=== PATIENT | female | born 1960 | race Caucasian/White ===

== ENCOUNTER 2021-09-15 18:39 | Observation (INO) | payer BC ==
[~2021-09-15] VITALS: Ht 157.5 cm; Wt 89.0 kg
--- NOTE | 2021-09-15 18:59 | ED Abdominal Pain ---
General Chief Complaint: Abdominal/GI Problems Stated Complaint: ABD PAIN History of Present Illness Date Seen by Provider: Sep 15, 2021 Time Seen by Provider: 18:45 Initial Comments 61-year-old female with PMH of HTN/DM2/breast cancer/COPD, is here with complaints of upper abdominal pain for the past 1 week which has been intermittent in nature. Patient has had associated nausea, and exacerbation of pain with food and movement. Patient does not have any history of gastritis or peptic ulcers. Denies fever, respiratory symptoms, loss of taste or smell, chest pain, diarrhea, constipation, vomiting. No known sick contacts Allergies and Home Medications Allergies Coded Allergies: Penicillins (Verified Allergy, Unknown, 09/15/21) codeine (Verified Allergy, Unknown, 09/15/21) Patient Home Medication List Home Medication List Reviewed: Yes Review of Systems Review of Systems Constitutional: no symptoms reported EENTM: No Symptoms Reported Respiratory: No Symptoms Reported Cardiovascular: No Symptoms Reported Gastrointestinal: Abdominal Pain, Nausea Genitourinary: No Symptoms Reported Musculoskeletal: no symptoms reported Skin: no symptoms reported Psychiatric/Neurological: No Symptoms Reported Endocrine: No Symptoms Reported Hematologic/Lymphatic: No Symptoms Reported Physical Exam Vital Signs Vital Signs - First Documented 09/15/21 18:44 Temp 37.2 Pulse 110 Resp 18 B/P (MAP) 128/95 (106) Pulse Ox 96 O2 Delivery Room Air Capillary Refill : Height/Weight/BMI Height: '" Weight: lbs. oz. kg; BMI Method: General Appearance: WD/WN, mild distress HEENT: PERRL/EOMI Neck: full range of motion Respiratory: chest non-tender, lungs clear, normal breath sounds, no respiratory distress Cardiovascular: normal peripheral pulses, regular rate, rhythm Gastrointestinal: normal bowel sounds, non tender (tenderness in RUQ/ LUQ and epigastric area), soft Extremities: normal range of motion Back: normal inspection, no CVA tenderness Neurologic/Psychiatric: alert, normal mood/affect, oriented x 3 Skin: normal color Focused Exam Lactate Level 09/15/21 18:57: Lactic Acid Level 1.93 Lactic Acid Level Laboratory Tests Test 09/15/21 18:57 Lactic Acid Level 1.93 MMOL/L (0.50-2.00) Progress/Results/Core Measures Results/Orders Lab Results Laboratory Tests Test 09/15/21 18:57 09/15/21 19:37 Range/Units White Blood Count 8.9 4.3-11.0 10^3/uL Red Blood Count 4.07 3.80-5.11 10^6/uL Hemoglobin 12.5 11.5-16.0 g/dL Hematocrit 37 35-52 % Mean Corpuscular Volume 90 80-99 fL Mean Corpuscular Hemoglobin 31 25-34 pg Mean Corpuscular Hemoglobin Concent 34 32-36 g/dL Red Cell Distribution Width 13.5 10.0-14.5 % Platelet Count 277 130-400 10^3/uL Mean Platelet Volume 11.0 9.0-12.2 fL Immature Granulocyte % (Auto) 0 % Neutrophils (%) (Auto) 68 42-75 % Lymphocytes (%) (Auto) 20 12-44 % Monocytes (%) (Auto) 9 0-12 % Eosinophils (%) (Auto) 2 0-10 % Basophils (%) (Auto) 0 0-10 % Neutrophils # (Auto) 6.1 1.8-7.8 10^3/uL Lymphocytes # (Auto) 1.8 1.0-4.0 10^3/uL Monocytes # (Auto) 0.8 0.0-1.0 10^3/uL Eosinophils # (Auto) 0.1 0.0-0.3 10^3/uL Basophils # (Auto) 0.0 0.0-0.1 10^3/uL Immature Granulocyte # (Auto) 0.0 0.0-0.1 10^3/uL Sodium Level 134 L 135-145 MMOL/L Potassium Level 4.6 3.6-5.0 MMOL/L Chloride Level 98 98-107 MMOL/L Carbon Dioxide Level 24 21-32 MMOL/L Anion Gap 12 5-14 MMOL/L Blood Urea Nitrogen 13 7-18 MG/DL Creatinine 0.86 0.60-1.30 MG/DL Estimat Glomerular Filtration Rate 77 BUN/Creatinine Ratio 15 Glucose Level 280 H 70-105 MG/DL Lactic Acid Level 1.93 0.50-2.00 MMOL/L Calcium Level 9.5 8.5-10.1 MG/DL Corrected Calcium 9.6 8.5-10.1 MG/DL Magnesium Level 1.3 L 1.6-2.4 MG/DL Total Bilirubin 0.4 0.1-1.0 MG/DL Aspartate Amino Transf (AST/SGOT) 21 5-34 U/L Alanine Aminotransferase (ALT/SGPT) 18 0-55 U/L Alkaline Phosphatase 87 40-136 U/L Troponin I < 0.30 <0.30 NG/ML Total Protein 8.0 6.4-8.2 GM/DL Albumin 3.9 3.2-4.5 GM/DL Lipase 486 H 8-78 U/L Serum Alcohol < 10 <10 MG/DL Urine Color YELLOW Urine Clarity CLEAR Urine pH 6.0 5-9 Urine Specific [place] 1.020 1.016-1.022 Urine Protein NEGATIVE NEGATIVE Urine Glucose (UA) 3+ H NEGATIVE Urine Ketones NEGATIVE NEGATIVE Urine Nitrite NEGATIVE NEGATIVE Urine Bilirubin NEGATIVE NEGATIVE Urine Urobilinogen 0.2 < = 1.0 MG/DL Urine Leukocyte Esterase NEGATIVE NEGATIVE Urine RBC (Auto) NEGATIVE NEGATIVE Urine RBC NONE /HPF Urine WBC 2-5 /HPF Urine Squamous Epithelial Cells 2-5 /HPF Urine Renal Epithelial Cells 0-2 /HPF Urine Crystals NONE /LPF Urine Bacteria FEW H /HPF Urine Casts NONE /LPF Urine Mucus MODERATE H /LPF Urine Culture Indicated NO Urine Opiates Screen NEGATIVE NEGATIVE Urine Oxycodone Screen NEGATIVE NEGATIVE Urine Methadone Screen NEGATIVE NEGATIVE Urine Propoxyphene Screen NEGATIVE NEGATIVE Urine Barbiturates Screen NEGATIVE NEGATIVE Ur Tricyclic Antidepressants Screen NEGATIVE NEGATIVE Urine Phencyclidine Screen NEGATIVE NEGATIVE Urine Amphetamines Screen NEGATIVE NEGATIVE Urine Methamphetamines Screen NEGATIVE NEGATIVE Urine Benzodiazepines Screen NEGATIVE NEGATIVE Urine Cocaine Screen NEGATIVE NEGATIVE Urine Cannabinoids Screen NEGATIVE NEGATIVE My Orders Orders - KAYLA RICKETTS MD Ct Abdomen/Pelvis W (09/15/21 19:05) Alcohol (09/15/21 19:05) Cbc With Automated Diff (09/15/21 19:05) Comprehensive Metabolic Panel (09/15/21 19:05) Drug Screen Stat (Urine) (09/15/21 19:05) Lactic Acid Analyzer (09/15/21 19:05) Lipase (09/15/21 19:05) Magnesium (09/15/21 19:05) Ua Culture If Indicated (09/15/21 19:05) Troponin I Fs (09/15/21 19:05) Iohexol Injection (Omnipaque 350 Mg/Ml 1 (09/15/21 19:15) Received Contrast (Hold Metformin- Contr (09/15/21 19:15) Ns (Ivpb) (Sodium Chloride 0.9% Ivpb Bag (09/15/21 19:15) Implanted Port: Access (09/15/21 19:14) Ketorolac Injection (Toradol Injection) (09/15/21 20:00) Ed Iv/Invasive Line Start (09/15/21 19:57) Ns Iv 1000 Ml (Sodium Chloride 0.9%) (09/15/21 20:00) Medications Given in ED Current Medications Medications Dose Ordered Sig/Omaira Route Start Time Stop Time Status Last Admin Dose Admin Iohexol 100 ml ONCE ONCE IV 09/15/21 19:15 09/15/21 19:16 DC 09/15/21 20:09 100 ML Ketorolac Tromethamine 15 mg ONCE ONCE IVP 09/15/21 20:00 09/15/21 20:01 DC 09/15/21 20:03 15 MG Sodium Chloride 100 ml ONCE ONCE IV 09/15/21 19:15 09/15/21 19:16 DC 09/15/21 20:09 100 ML Vital Signs/I&O 09/15/21 09/15/21 18:44 19:45 Temp 37.2 Pulse 110 91 Resp 18 20 B/P (MAP) 128/95 (106) 113/79 Pulse Ox 96 100 O2 Delivery Room Air Room Air Progress Progress Note : Progress Note 1. ACUTE PANCREATITIS:: - CT ABD: see report, confirms acute pancreatitis - Labs unremarkable except for lipase elevation of 486 - UA unremarkable - Toradol 15mg iv, which didn't help the pain and then later Morphine 2mg iv given for pain - NPO - Will admit to observation for pain control and hydration 2. HYPOMAGNESEMIA: - s. Mg is 1.3 - iv Mg repletion, 1gm, given in ER Diagnostic Imaging Diagonstic Imaging: CT Plain Films/CT/US/NM/MRI: abdomen Comments [facility]. [place], [place] NAME: MAGY ALANIS [facility] REC#: [id number] PT STATUS: REG ER : 1960 PHYSICIAN: KAYLA RICKETTS MD ADMIT DATE: 09/15/21/ER FS Draft Date of Exam:09/15/21 CT ABDOMEN/PELVIS W PROCEDURE: CT abdomen and pelvis with contrast. TECHNIQUE: Multiple contiguous axial images were obtained through the abdomen and pelvis after administration of intravenous contrast. Auto Exposure Controls were utilized during the CT exam to meet ALARA standards for radiation dose reduction. All CT scans use one or more of the following dose optimizing techniques: automated exposure control, MA and/or KvP adjustment based on patient size and exam type or iterative reconstruction. INDICATION: Upper abdominal pain. COMPARISON: None. FINDINGS: CT ABDOMEN: There is subtle stranding of the peripancreatic fat surrounding the pancreatic head and uncinate process. No definite pancreatic mass is seen. Findings are suspicious for acute pancreatitis. There is no loculated fluid collection to suggest pseudocyst or abscess. There is no evidence of pancreatic necrosis. Benign-appearing left renal cyst is noted. Otherwise, kidneys, adrenal glands, spleen and liver have a normal CT appearance. Small bowel loops are nondistended. Multiple appendicoliths are noted, but there is no CT evidence of acute appendicitis. There is colonic diverticulosis and no CT evidence of acute diverticulitis. There is no pneumatosis, pneumoperitoneum or portal venous gas. No free fluid is seen. There is moderate scattered calcified aortic and arterial atherosclerosis. Osseous structures show no acute abnormality. CT PELVIS: Urinary bladder is unopacified. No calculus is seen within the urinary bladder. There is no loculated fluid collection, free fluid or free air within the pelvis. No abnormal adenopathy is identified. Osseous structures show no acute abnormality. IMPRESSION: 1. Findings most suggestive of acute pancreatitis. Short interval three-month follow-up is recommended, as pancreatic neoplasm may present in a similar manner. 2. No evidence of pancreatic necrosis, pseudocyst or abscess. Dictated on workstation # [id number] Dict: 09/15/212029 Trans: 09/15/212048 [facility] [id number] Interpreted by: MADAI BOSS MD Electronically signed by: Departure Communication (Admissions) Time/Spoke to Admitting Phy: 21:[address] Chirinos and will admit to Observation Impression Primary Impression: Acute pancreatitis Qualified Codes: K85.90 - Acute pancreatitis without necrosis or infection, unspecified Additional Impression: Hypomagnesemia Disposition: 30 STILL A PATIENT Condition: Stable Admissions Decision to Admit Reason: Admit from ER (General) Decision to Admit/Date: Sep 15, 2021 Time/Decision to Admit Time: 21:00 Transfer Method of Transfer: EMS Departure-Patient Inst. Referrals: EMIL BYNUM APRN (PCP/Family) Primary Care Physician KAYLA RICKETTS MD Sep 15, 2021 18:59
[2021-09-15] MEDS ORDERED: NS 100 ML (IVPB) BAG IV ONE (19:15)
[2021-09-15] MEDS ORDERED: IOHEXOL 350 MG/ML 100 ML (OMNIPAQUE 350) VIAL IV ONE (19:15)
[2021-09-15] MEDS ORDERED: HOLD METFORMIN - RECEIVED CONTRAST 20 ML VIAL IV SCH (19:15)
[2021-09-15 19:19] LABS: BASOPHILS % (AUTO) 0 % (0-10); EOSINOPHILS # (AUTO) 0.1 10^3/uL (0.0-0.3); EOSINOPHILS % (AUTO) 2 % (0-10); HEMATOCRIT 37 % (35-52); HEMOGLOBIN 12.5 g/dL (11.5-16.0); LYMPHOCYTES # (AUTO) 1.8 10^3/uL (1.0-4.0); LYMPHOCYTES % (AUTO) 20 % (12-44); MEAN CORPUSCULAR HEMOGLOBIN 31 pg (25-34); MEAN CORPUSCULAR HGB CONC 34 g/dL (32-36); MEAN CORPUSCULAR VOLUME 90 fL (80-99); MONOCYTES # (AUTO) 0.8 10^3/uL (0.0-1.0); MONOCYTES % (AUTO) 9 % (0-12); NEUTROPHILS # (AUTO) 6.1 10^3/uL (1.8-7.8); NEUTROPHILS % (AUTO) 68 % (42-75); PLATELET COUNT 277 10^3/uL (130-400); WHITE BLOOD COUNT 8.9 10^3/uL (4.3-11.0)
[2021-09-15 19:45] LABS: ALANINE AMINOTRANSFERASE 18 U/L (0-55); ALKALINE PHOSPHATASE 87 U/L (40-136); BILIRUBIN,TOTAL 0.4 MG/DL (0.1-1.0); BUN/CREATININE RATIO 15; CALCIUM 9.5 MG/DL (8.5-10.1); CARBON DIOXIDE 24 MMOL/L (21-32); CHLORIDE 98 MMOL/L (98-107); CREATININE SERUM 0.86 MG/DL (0.60-1.30); GFR ESTIMATED 77; GLUCOSE 280 MG/DL (70-105); MAGNESIUM 1.3 MG/DL (1.6-2.4); POTASSIUM 4.6 MMOL/L (3.6-5.0); SODIUM 134 MMOL/L (135-145)
[2021-09-15 19:46] LABS: ALBUMIN 3.9 GM/DL (3.2-4.5); LIPASE 486 U/L (8-78)
[2021-09-15 19:55] LABS: BILIRUBIN,URINE NEGATIVE (NEGATIVE); CLARITY,URINE CLEAR; COLOR,URINE YELLOW; GLUCOSE, URINE (UA) 3+ (NEGATIVE); KETONES,URINE NEGATIVE (NEGATIVE); LEUKOCYTE ESTERASE ,URINE NEGATIVE (NEGATIVE); NITRITE,URINE NEGATIVE (NEGATIVE); PROTEIN,URINE NEGATIVE (NEGATIVE)
[2021-09-15] MEDS ORDERED: KETOROLAC 30 MG/ML VIAL IVP ONE (20:00)
[2021-09-15] MEDS ORDERED: NS IV 1000 ML 1,000 ML IV SCH (20:00)
[2021-09-15 20:06] LABS: BACTERIA,URINE FEW /HPF; RENAL EPITHELIAL CELLS,URINE 0-2 /HPF
[2021-09-15 20:07] LABS: AMPHETAMINE SCREEN, URINE NEGATIVE (NEGATIVE); BARBITURATE SCREEN URINE NEGATIVE (NEGATIVE); BENZODIAZEPINES SCREEN URINE NEGATIVE (NEGATIVE); CANNABINOID SCREEN, URINE NEGATIVE (NEGATIVE); COCAINE SCREEN URINE NEGATIVE (NEGATIVE); METHADONE STAT NEGATIVE (NEGATIVE); OPIATE SCREEN URINE NEGATIVE (NEGATIVE); OXYCODONE STAT NEGATIVE (NEGATIVE); PROPOXYPHENE STAT NEGATIVE (NEGATIVE); TRICYCLIC ANTIDEPRESSANTS SCRE NEGATIVE (NEGATIVE)
--- NOTE | 2021-09-15 20:50 | Diagnostic Imaging Report ---
PROCEDURE: CT abdomen and pelvis with contrast. TECHNIQUE: Multiple contiguous axial images were obtained through the abdomen and pelvis after administration of intravenous contrast. Auto Exposure Controls were utilized during the CT exam to meet ALARA standards for radiation dose reduction. All CT scans use one or more of the following dose optimizing techniques: automated exposure control, MA and/or KvP adjustment based on patient size and exam type or iterative reconstruction. INDICATION: Upper abdominal pain. COMPARISON: None. FINDINGS: CT ABDOMEN: There is subtle stranding of the peripancreatic fat surrounding the pancreatic head and uncinate process. No definite pancreatic mass is seen. Findings are suspicious for acute pancreatitis. There is no loculated fluid collection to suggest pseudocyst or abscess. There is no evidence of pancreatic necrosis. Benign-appearing left renal cyst is noted. Otherwise, kidneys, adrenal glands, spleen and liver have a normal CT appearance. Small bowel loops are nondistended. Multiple appendicoliths are noted, but there is no CT evidence of acute appendicitis. There is colonic diverticulosis and no CT evidence of acute diverticulitis. There is no pneumatosis, pneumoperitoneum or portal venous gas. No free fluid is seen. There is moderate scattered calcified aortic and arterial atherosclerosis. Osseous structures show no acute abnormality. CT PELVIS: Urinary bladder is unopacified. No calculus is seen within the urinary bladder. There is no loculated fluid collection, free fluid or free air within the pelvis. No abnormal adenopathy is identified. Osseous structures show no acute abnormality. IMPRESSION: 1. Findings most suggestive of acute pancreatitis. Short interval three-month follow-up is recommended, as pancreatic neoplasm may present in a similar manner. 2. No evidence of pancreatic necrosis, pseudocyst or abscess. Dictated by: Dictated on workstation # [id number]
[2021-09-15] MEDS ORDERED: ENOXAPARIN 40 MG/0.4 ML (LOVENOX) SYR SC SCH (21:00)
[2021-09-15] MEDS ORDERED: morphine INJ 10 MG/ML 1ML (SYR OR VIAL) IVP STA (21:05)
[2021-09-15] MEDS ORDERED: MAGNESIUM 1 GM/100 ML IVPB 100 ML IV ONE ×2 (21:15→21:18)
[2021-09-15] MEDS ORDERED: morphine INJ 10 MG/ML 1ML (SYR OR VIAL) ONE (21:17)
[2021-09-15 23:06] VITALS: BP 104/56
[2021-09-15] MEDS ORDERED: NS IV 1000 ML 1,000 ML ONE (23:29)
[2021-09-15] MEDS ORDERED: polyethylene glycoL POWDER 17 GM (MIRALAX) PACK PO PRN (23:30)
[2021-09-15] MEDS ORDERED: diphenhydrAMINE 50 MG/ML INJ (BENADRYL) IVP PRN (23:30)
[2021-09-15] MEDS ORDERED: ONDANSETRON 4 MG (ZOFRAN) ORAL DISSOLVE TAB PO PRN (23:30)
[2021-09-15] MEDS ORDERED: KETOROLAC 30 MG/ML VIAL IVP PRN (23:30)
[2021-09-15] MEDS ORDERED: diphenhydrAMINE 25 MG TAB (BENADRYL) PO PRN (23:30)
[2021-09-15] MEDS ORDERED: MELATONIN 3 MG TABLET PO PRN (23:30)
[2021-09-15] MEDS ORDERED: HYDROmorphone 2 MG/ML VIAL (DILAUDID) IV PRN (23:30)
[2021-09-15] MEDS ORDERED: BISACODYL 10 MG SUPP (DULCOLAX) PR PRN (23:30)
[2021-09-15] MEDS ORDERED: LORazepam 0.5 MG (ATIVAN) TABLET PO PRN (23:30)
[2021-09-15] MEDS ORDERED: ACETAMINOPHEN 325 MG TABLET PO PRN (23:30)
[2021-09-15] MEDS ORDERED: ANTACID SUSP 30 ML UDC (MYLANTA) PO PRN (23:30)
[2021-09-15] MEDS ORDERED: ONDANSETRON 4 MG/2 ML (SDV) Z0FRAN IV PRN (23:30)
[2021-09-15] MEDS: MAGNESIUM 1 GM/100 ML IVPB 100 ML IV SCH (23:57)
[2021-09-15] MEDS: NS IV 1000 ML 1,000 ML IV SCH (23:57)
[2021-09-16] MEDS: MAGNESIUM 1 GM/100 ML IVPB 100 ML IV SCH ×2 (01:01→02:06)
[2021-09-16 04:00] VITALS: BP 102/50
[2021-09-16 06:05] LABS: BASOPHILS % (AUTO) 1 % (0-10); EOSINOPHILS # (AUTO) 0.2 10^3/uL (0.0-0.3); EOSINOPHILS % (AUTO) 3 % (0-10); HEMATOCRIT 32 % (35-52); HEMOGLOBIN 10.6 g/dL (11.5-16.0); LYMPHOCYTES # (AUTO) 2.2 10^3/uL (1.0-4.0); LYMPHOCYTES % (AUTO) 39 % (12-44); MEAN CORPUSCULAR HEMOGLOBIN 31 pg (25-34); MEAN CORPUSCULAR HGB CONC 34 g/dL (32-36); MEAN CORPUSCULAR VOLUME 92 fL (80-99); MEAN PLATELET VOLUME 10.8 fL (9.0-12.2); MONOCYTES # (AUTO) 0.5 10^3/uL (0.0-1.0); MONOCYTES % (AUTO) 9 % (0-12); NEUTROPHILS # (AUTO) 2.7 10^3/uL (1.8-7.8); NEUTROPHILS % (AUTO) 48 % (42-75); PLATELET COUNT 230 10^3/uL (130-400); WHITE BLOOD COUNT 5.6 10^3/uL (4.3-11.0)
[2021-09-16 06:24] LABS: ALBUMIN 3.3 GM/DL (3.2-4.5); BILIRUBIN,TOTAL 0.6 MG/DL (0.1-1.0); CALCIUM 8.6 MG/DL (8.5-10.1); CREATININE SERUM 1.02 MG/DL (0.60-1.30); POTASSIUM 4.1 MMOL/L (3.6-5.0); TOTAL PROTEIN 6.6 GM/DL (6.4-8.2)
[2021-09-16] MEDS: inSUlin ASPART (NovoLOG) 1 UNIT/0.01 ML (CHARGE PER UNIT) SC SCH ×3 (07:15→16:22)
--- NOTE | 2021-09-16 07:20 | Consultation - Surgery ---
NIKHIL GARCIA 09/16/21 0720: History of Present Illness History of Present Illness Patient Consulted On(bashir/time) 09/16/21 07:14 Date Seen by Provider: Sep 16, 2021 Time Seen by Provider: 07:14 History of Present Illness consulted by Dr. Chirinos 61 yo female c/o midline squeezing abdominal pain with no radiation that started 8 days ago. Pt notes that the pain was worse at onset and decreased slightly in the first two days but persisted ever since. Pt notes some relief of pain after oxycodone was given in hospital. Pt is sitting up in bed comfortably. Family is at bedside. Pt had an abdominal/pelvis CT yesterday that was most suggestive of acute pancreatitis. Discussed obtaining an ultrasound of the gallbladder and pt understands. Pt denies n/v, shortness of breath, and CP. Allergies and Home Medications Allergies Coded Allergies: Penicillins (Verified Allergy, Unknown, 09/15/21) codeine (Verified Allergy, Unknown, 09/15/21) Patient Home Medication List Home Medication List Reviewed: Yes Past Dxhybko-Divfzx-Bwfwaj Hx Patient Social History Smoking Status: Former Smoker Alcohol Use?: No Have you traveled recently?: No Surgeries History of Surgeries: Yes Surgeries: Breast (b/l reconstruction surgery) Cardiovascular Cardiac Disorders: Heart Attack Cancer Cancer: Breast (2000), Melanoma (2017) Psychosocial History of Psychiatric Problem: No Review of Systems-General Constitutional: No chills, No diaphoresis EENTM: No hearing loss, No ear pain Respiratory: No cough, No dyspnea on exertion Cardiovascular: No chest pain, No edema Gastrointestinal: No hematemesis, No heartburn Genitourinary: No discharge, No frequency Musculoskeletal: No gout, No joint pain Skin: No change in color, No change in hair/nails Psychiatric/Neurological: Denies Anxiety, Denies Depressed Physical Exam-General Problems Physical Exam Vital Signs Vital Signs - First Documented 09/15/21 18:44 Temp 37.2 Pulse 110 Resp 18 B/P (MAP) 128/95 (106) Pulse Ox 96 O2 Delivery Room Air Capillary Refill : Less Than 3 Seconds General Appearance: WD/WN, no apparent distress HEENT: PERRL/EOMI, normal ENT inspection Neck: non-tender, full range of motion Respiratory: no respiratory distress, no accessory muscle use Cardiovascular: regular rate, rhythm, no JVD Gastrointestinal: soft, tenderness (epigastric) Back: normal inspection, no CVA tenderness Extremities: non-tender, normal inspection Neurologic/Psychiatric: no motor/sensory deficits, alert, normal mood/affect, oriented x 3 Skin: normal color, warm/dry Lymphatic: no adenopathy Data Review Labs Laboratory Tests 09/15/21 18:57: White Blood Count 8.9, Red Blood Count 4.07, Hemoglobin 12.5, Hematocrit 37, Sweta n Corpuscular Volume 90, Mean Corpuscular Hemoglobin 31, Mean Corpuscular Hemoglobin Concent 34, Red Cell Distribution Width 13.5, Platelet Count 277, Mean Platelet Volume 11.0, Immature Granulocyte % (Auto) 0, Neutrophils (%) (Auto) 68, Lymphocytes (%) (Auto) 20, Monocytes (%) (Auto) 9, Eosinophils (%) (Auto) 2, Basophils (%) (Auto) 0, Neutrophils # (Auto) 6.1, Lymphocytes # (Auto) 1.8, Monocytes # (Auto) 0.8, Eosinophils # (Auto) 0.1, Basophils # (Auto) 0.0, Immature Granulocyte # (Auto) 0.0, Sodium Level 134L, Potassium Level 4.6, Chloride Level 98, Carbon Dioxide Level 24, Anion Gap 12, Blood Urea Nitrogen 1 3, Creatinine 0.86, Estimat Glomerular Filtration Rate 77, BUN/Creatinine Ratio 15, Glucose Level 280H, Lactic Acid Level 1.93, Calcium Level 9.5, Corrected Calcium 9.6, Magnesium Level 1.3L, Total Bilirubin 0.4, Aspartate Amino Transf (AST/SGOT) 21, Alanine Aminotransferase (ALT/SGPT) 18, Alkaline Phosphatase 87, Troponin I < 0.30, Total Protein 8.0, Albumin 3.9, Lipase 486H, Serum Alcohol < 10 09/15/21 19:37: Urine Color YELLOW, Urine Clarity CLEAR, Urine pH 6.0, Urine Specific [place] 1.020, Urine Protein NEGATIVE, Urine Glucose (UA) 3+H, Urine Ketones NEGATIVE, Urine Nitrite NEGATIVE, Urine Bilirubin NEGATIVE, Urine Urobilinogen 0.2, Urine Leukocyte Esterase NEGATIVE, Urine RBC (Auto) NEGATIVE, Urine RBC NONE, Urine WBC 2-5, Urine Squamous Epithelial Cells 2-5, Urine Renal Epithelial Cells 0-2, Urine Crystals NONE, Urine Bacteria FEWH, Urine Casts NONE, Urine Mucus MODER ATEH, Urine Culture Indicated NO, Urine Opiates Screen NEGATIVE, Urine Oxycodone Screen NEGATIVE, Urine Methadone Screen NEGATIVE, Urine Propoxyphene Screen NEGATIVE, Urine Barbiturates Screen NEGATIVE, Ur Tricyclic Antidepressants Screen NEGATIVE, Urine Phencyclidine Screen NEGATIVE, Urine Amphetamines Screen NEGATIVE, Urine Methamphetamines Screen NEGATIVE, Urine Benzodiazepines Screen NEGATIVE, Urine Cocaine Screen NEGATIVE, Urine Cannabinoids Screen NEGATIVE 09/16/21 04:40: White Blood Count 5.6, Red Blood Count 3.44L, Hemoglobin 10.6L, Hematocrit 32L, Mean Corpuscular Volume 92, Mean Corpuscular Hemoglobin 31, Mean Corpuscular Hemoglobin Concent 34, Red Cell Distribution Width 13.6, Platelet Count 230, Mean Platelet Volume 10.8, Immature Granulocyte % (Auto) 0, Neutrophils (%) (Auto) 48, Lymphocytes (%) (Auto) 39, Monocytes (%) (Auto) 9, Eosinophils (%) (Auto) 3, Basophils (%) (Auto) 1, Neutrophils # (Auto) 2.7, Lymphocytes # (Auto) 2.2, Monocytes # (Auto) 0.5, Eosinophils # (Auto) 0.2, Basophils # (Auto) 0.0, Immature Granulocyte # (Auto) 0.0, Sodium Level 132L, Potassium Level 4.1, Chloride Level 101, Carbon Dioxide Level 22, Anion Gap 9, Blood Urea Nitrogen 14, Creatinine 1.02, Estimat Glomerular Filtration Rate 63, BUN/Creatinine Ratio 14, Glucose Level 158H, Calcium Level 8.6, Corrected Calcium 9.2, Total Bilirubin 0.6, Aspartate Amino Transf (AST/SGOT) 14, Alanine Aminotransferase (ALT/SGPT) 18, Alkaline Phosphatase 65, Total Protein 6.6, Albumin 3.3, Lipase 223H Assessment/Plan Assessment/Plan Assessment/Plan Acute pancreatitis Anemia Abd pain Ultrasound of gallbladder IV fluids monitor labs NPO repeat CT scan in three months EDVIN WALTON DO 09/16/21 2030: History of Present Illness History of Present Illness History of Present Illness Consult requested by Dr. Chirinos for pancreatitis. Patient is 61-year-old female who is been having a squeezing abdominal pain without any radiation that started approximately 7 to 8 days ago. Patient states that the pain was really bad on onset and decreased slightly and then continue to persist in that area. Patient states that the pain medication she received did help relieve some of her symptoms. She is not had any previous abdominal pain like this. She does not drink any alcohol. Sitting up is more comfortable for her. She had a CT scan that was suggestive of acute pancreatitis and also could be early neoplasm and would need a repeat CT scan in 3 months for reevaluation. Allergies and Home Medications Allergies Coded Allergies: Penicillins (Verified Allergy, Unknown, 09/15/21) codeine (Verified Allergy, Unknown, 09/15/21) Patient Home Medication List Home Medication List Reviewed: Yes Past Matsqlr-Uswnfq-Rtgrqo Hx Surgeries History of Surgeries: Yes (port) Surgeries: Breast (b/l reconstruction surgery), Hysterectomy Cancer Cancer: Breast (1999), Melanoma (2016) Reviewed Nursing Assessment Reviewed/Agree w Nursing PMH: Yes Family Medical History Significant Family History: No Pertinent Family Hx Review of Systems-General Constitutional: No chills, No diaphoresis EENTM: No hearing loss, No ear pain Respiratory: No cough, No dyspnea on exertion Cardiovascular: No chest pain, No edema Gastrointestinal: abdominal pain; No hematemesis, No heartburn, No nausea, No vomiting Genitourinary: No discharge, No frequency Musculoskeletal: No gout, No joint pain Skin: No change in color, No change in hair/nails Psychiatric/Neurological: Denies Anxiety, Denies Depressed All Other Systems Reviewed Negative Unless Noted: Yes (Negative excepted noted.) Physical Exam-General Problems Physical Exam General Appearance: WD/WN, no apparent distress HEENT: PERRL/EOMI, normal ENT inspection Neck: non-tender, full range of motion Respiratory: chest non-tender, no respiratory distress, no accessory muscle use Cardiovascular: regular rate, rhythm, no JVD Gastrointestinal: soft, tenderness (epigastric) Rectal: deferred Back: normal inspection, no CVA tenderness Extremities: non-tender, normal inspection Neurologic/Psychiatric: no motor/sensory deficits, alert, normal mood/affect, oriented x 3 Skin: normal color, warm/dry Lymphatic: no adenopathy Assessment/Plan Assessment/Plan Assessment/Plan Acute pancreatitis Anemia Abd pain epigastric Ultrasound of gallbladder to evaluate for stones/sludge IV fluids monitor labs NPO for u/s will need repeat CT scan in three months discussed this with patient and daughter who understand need to make sure neoplastic process not present. Supervisory-Addendum Brief Verification & Attestation Participated in pt care: history, MDM, physical Personally performed: exam, history, MDM, supervision of care Care discussed with: Medical Student Procedures: n/a Results interpretation: Verified all documentation Verification and Attestation of Medical Student E/M Service A medical student performed and documented this service in my presence. I reviewed and verified all information documented by the medical student and made modifications to such information, when appropriate. I personally performed the physical exam and medical decision making. Edvin Walton, Sep 16, 2021,20:30 NIKHIL GARCIA Sep 16, 2021 07:20 EDVIN WALTON DO Sep 16, 2021 20:30
[2021-09-16 08:12] VITALS: BP 131/71
[2021-09-16] MEDS: NS IV 1000 ML 1,000 ML IV SCH ×2 (08:26→09:55)
--- NOTE | 2021-09-16 08:36 | Diagnostic Imaging Report ---
PROCEDURE: US Gallbladder. INDICATION: Abdominal pain, acute pancreatitis TECHNIQUE: Multiple grayscale sonographic images were obtained of the right upper quadrant of the abdomen. CORRELATION STUDY: None FINDINGS: LIVER: Enlarged at 21 cm. Probable diffuse hepatic steatosis. The main portal vein is patent and with normal direction of flow. GALLBLADDER: The gallbladder demonstrates no definitive shadowing gallstones, abnormal gallbladder wall thickening or pericholecystic fluid. COMMON BILE DUCT: Nondilated at 0.5 cm. AORTA/IVC: Not well visualized. PANCREAS: Largely obscured by overlying bowel gas. RIGHT KIDNEY: 9.2 x 4.3 x 4.6 cm. No hydronephrosis. OTHER: None. IMPRESSION: 1. Negative for gallstones or bile duct dilatation. Pancreas is not well visualized, largely obscured by overlying bowel gas. 2. Hepatomegaly with probable hepatic steatosis. Dictated by: Dictated on workstation # [id number]
[2021-09-16] MEDS ORDERED: DOCUSATE SODIUM 100 MG (COLACE) CAP PO SCH (09:00)
--- NOTE | 2021-09-16 09:13 | Physical Therapy Progress Note ---
Therapy Progress Note Patient is up independently without difficulty. No skilled PT indicated. MAGY GRAHAM PT Sep 16, 2021 09:13
--- NOTE | 2021-09-16 11:28 | Occ Therapy Progress Note ---
Therapy Progress Note OT orders received and chart reviewed. PT and pt both report that she is up independently in her room and pt has no concerns about ADLs upon d/c. No skilled OT services indicated at this time. D/c from OT. 1, visit ANA LUISA LEES OT Sep 16, 2021 11:28
--- NOTE | 2021-09-16 11:45 | History & Physical-Hospitalist ---
ANGELLA WATERMAN 09/16/21 1145: History of Present Illness HPI/Chief Complaint CC: Acute Pancreatitis HPI: 61-year-old female with PMH of HTN/DM2/breast cancer/COPD, presented to ER on 09/15/21 with complaints of upper abdominal pain for the past 1 week which has been intermittent in nature. Patient has had associated nausea, and exacerbation of pain with food and movement. Patient does not have any history of gastritis or peptic ulcers. CT confirmed acute panc. Pt denies any pain, N/V, fever, CP/SOB. GB US was completed this morning. Pt reports normal BM and feels "back to normal." Source: patient Exam Limitations: no limitations Date Seen 09/16/21 Time Seen by a Provider: 11:45 Attending Physician Mirela Bains Aprn PCP Admitting Physician: Jacquie Rivera DO Attending Physician: Jacquie Rivera DO Referring Physician Date of Admission Sep 15, 2021 at 23:05 Home Medications & Allergies Home Medications Reviewed patient Home Medication Reconciliation performed by pharmacy medication reconciliations survey technician and/or nursing. Patients Allergies have been reviewed. Allergies Allergies Coded Allergies Penicillins (Verified Allergy, Unknown, 09/15/21) codeine (Verified Allergy, Unknown, 09/15/21) Past [id number] Hx Patient Social History Marrital Status: Number of Children: 3 Number of living children: 3 Employed/Student: employed Tobacco Use?: No Smoking Status: Former Smoker Smokeless Tobacco Frequency: Never a User Use of E-Cig and/or Vaping dev: No Substance use?: No Alcohol Use?: No Pt feels they are or have been: No Current Status status: No status: No Advance Directives: No Communicates: Verbally Primary Language: Montenegrin Preferred Spoken Language: Montenegrin Is interpretation needed?: No Sensory deficits: Vision impairment Implanted or Applied Medical D: Central venous access Past Medical History Surgeries: Breast (b/l reconstruction surgery) Heart Attack Breast (2000), Melanoma (2017) Review of Systems Constitutional: No chills, No diaphoresis, No fever EENTM: No no symptoms reported Respiratory: No cough, No short of breath Cardiovascular: No chest pain, No edema Gastrointestinal: see HPI Genitourinary: No dysuria, No frequency, No hesitancy, No incontinence Musculoskeletal: No back pain, No muscle pain, No muscle stiffness, No muscle twitching, No muscle weakness Skin: No change in color; hx of skin cancer Psychiatric/Neurological: Denies Headache, Denies Numbness, Denies Paresthesia Physical Exam Physical Exam Vital Signs Vital Signs - First Documented 09/15/21 18:44 Temp 37.2 Pulse 110 Resp 18 B/P (MAP) 128/95 (106) Pulse Ox 96 O2 Delivery Room Air Capillary Refill : Less Than 3 Seconds Height, Weight, BMI Height: '" Weight: lbs. oz. kg; 35.87 BMI Method: General Appearance: No Apparent Distress, WD/WN Eyes: Bilateral Eye Normal Inspection HEENT: PERRL/EOMI Neck: Normal Inspection, Non Tender; No JVD Respiratory: Chest Non Tender, Lungs Clear, Normal Breath Sounds, No Accessory Muscle Use, No Respiratory Distress Cardiovascular: Regular Rate, Rhythm, No Edema, No Gallop, No JVD, No Murmur, Normal Peripheral Pulses Gastrointestinal: Normal Bowel Sounds, No Organomegaly, No Pulsatile Mass, Non Tender, Soft Back: No Vertebral Tenderness Extremity: Normal Inspection, Non Tender, No Calf Tenderness, No Pedal Edema Neurologic/Psychiatric: Alert, Oriented x3, No Motor/Sensory Deficits, Normal Mood/Affect Skin: Normal Color, Warm/Dry Results Results/Procedures Labs Laboratory Tests 09/15/21 18:57 09/16/21 04:40 Patient resulted labs reviewed. Assessment/Plan Admission Diagnosis Acute Pancreatitis Admission Status: Inpatient Order (span 2 midnights) Reason for Inpatient Admission: Acute pancreatitis Assessment and Plan 1)Acute Pancratitis * NPO * Pain control * continue fluids * monitor serial lipases * follow up CT in 3 mo 2) DM * continue insulin therapy JACQUIE RIVERA DO 09/16/215: History of Present Illness HPI/Chief Complaint CC: Pancreatitis HPI: This is a 61 yr old WF of [facility]. She presented with abdominal pain and was found to have pancreatitis on CT scan and labs. Abdominal ultrasound evaluated the gallbladder. Dr. Walton has been consulted. Source: patient Exam Limitations: no limitations Review of Systems Constitutional: see HPI Physical Exam Physical Exam General Appearance: No Apparent Distress, Chronically ill Respiratory: Lungs Clear, Normal Breath Sounds Cardiovascular: Regular Rate, Rhythm Gastrointestinal: Non Tender, Soft Neurologic/Psychiatric: Alert, Oriented x3, No Motor/Sensory Deficits, Normal Mood/Affect Assessment/Plan Admission Diagnosis Pancreatitis DM HTN Diagnosis/Problems Diagnosis/Problems (1) Acute pancreatitis Status: Acute Qualifiers: Pancreatitis type: unspecified pancreatitis type Acute pancreatitis complication: unspecified Qualified Codes: K85.90 - Acute pancreatitis without necrosis or infection, unspecified Supervisory-Addendum Brief Verification & Attestation Participated in pt care: history, MDM, physical Personally performed: exam, history, MDM, supervision of care Care discussed with: Medical Student Procedures: n/a Results interpretation: Verified all documentation Verification and Attestation of Medical Student E/M Service A medical student performed and documented this service in my presence. I reviewed and verified all information documented by the medical student and made modifications to such information, when appropriate. I personally performed the physical exam and medical decision making. Jacquie Rivera, Sep 16, 2021,22:05 ANGELLA WATERMAN Sep 16, 2021 11:45 JACQUIE RIVERA DO Sep 16, 2021 22:05
[2021-09-16 11:52] VITALS: BP 139/73
[2021-09-16 16:25] VITALS: BP 148/70
[2021-09-16] MEDS ORDERED: OXC5T PO (17:27)
[2021-09-16 18:06] VITALS: BP 148/70
--- NOTE | 2021-09-16 22:09 | Discharge Summary ---
Discharge Summary Hospital Course Was the Problem List Reviewed?: Yes Problems/Dx: (1) Acute pancreatitis Status: Acute Qualifiers: Qualified Codes: K85.90 - Acute pancreatitis without necrosis or infection, unspecified Hospital Course Date of Admission: Sep 15, 2021 at 23:05 Admission Diagnosis : Family Physician/Provider: Mirela Bains Aprn Date of Discharge: 09/16/21 Discharge Diagnosis: [ ] Hospital Course: See H&P HPI Labs and Pending Lab Test: Laboratory Tests 09/16/21 04:40: White Blood Count 5.6, Red Blood Count 3.44L, Hemoglobin 10.6L, Hematocrit 32L, Mean Corpuscular Volume 92, Mean Corpuscular Hemoglobin 31, Mean Corpuscular Hemoglobin Concent 34, Red Cell Distribution Width 13.6, Platelet Count 230, Mean Platelet Volume 10.8, Immature Granulocyte % (Auto) 0, Neutrophils (%) (Auto) 48, Lymphocytes (%) (Auto) 39, Monocytes (%) (Auto) 9, Eosinophils (%) (Auto) 3, Basophils (%) (Auto) 1, Neutrophils # (Auto) 2.7, Lymphocytes # (Auto) 2.2, Monocytes # (Auto) 0.5, Eosinophils # (Auto) 0.2, Basophils # (Auto) 0.0, Immature Granulocyte # (Auto) 0.0, Sodium Level 132L, Potassium Level 4.1, Chloride Level 101, Carbon Dioxide Level 22, Anion Gap 9, Blood Urea Nitrogen 14, Creatinine 1.02, Estimat Glomerular Filtration Rate 63, BUN/Creatinine Ratio 14, Glucose Level 158H, Calcium Level 8.6, Corrected Calcium 9.2, Total Bilirubin 0.6, Aspartate Amino Transf (AST/SGOT) 14, Alanine Aminotransferase (ALT/SGPT) 18, Alkaline Phosphatase 65, Total Protein 6.6, Albumin 3.3, Lipase 223H 09/16/21 10:44: Glucometer 113H Home Meds Active Assessment/Pt Instructions PCP 1 week Discharge Planning: <30 minutes discharge planning Discharge Instructions Discharge Diet: No Restrictions Discharge Physical Examination Vital Signs Vital Signs Date Time Temp Pulse Resp B/P (MAP) Pulse Ox O2 Delivery O2 Flow Rate FiO2 09/16/21 18:06 36.4 70 20 148/70 97 Room Air General Appearance: No Apparent Distress, WD/WN, Chronically ill Allergies: Coded Allergies: Penicillins (Verified Allergy, Unknown, 09/15/21) codeine (Verified Allergy, Unknown, 09/15/21) Discharge Summary Date of Admission Sep 15, 2021 at 23:05 Date of Discharge Sep 16, 2021 at 18:05 Discharge Date: Sep 16, 2021 Admission Diagnosis Pancreatitis DM HTN Discharge Diagnosis (1) Acute pancreatitis Status: Acute Qualifiers: Qualified Codes: K85.90 - Acute pancreatitis without necrosis or infection, unspecified STEEV RIVERA DO Sep 16, 2021 22:09
== END 2021-09-16 17:02 | disposition home or self-care (01) ==
LOC: ER FS 18:41 → 4TH 23:05
PROVIDERS: ADMIT Internal Medicine; ATTEND Internal Medicine
DX: K85.90 Acute pancreatitis without necrosis or infection, unspecified (principal); Z87.891 Personal history of nicotine dependence
CPT/HCPCS: 36415; 74177; 76705; 80053 ×2; 80306; 81000; 82947; 83605; 83690 ×2; 83735; 84484; 85025 ×2; 99284; G0480; 80320; 96366; 96372; 96376; G0378; Q9967

== ENCOUNTER → 2021-12-02 | Outpatient (CLI) | payer BC ==
[~2021-12-02] MED LIST: CATHETER FLUSH 10 ML SYR IVP PRN; OXC5T PO
--- NOTE | 2021-12-02 13:22 | Diagnostic Imaging Report ---
INDICATION: NAUSEA AND VOMITING. FINDINGS: The patient was administered 5.42 mCi of Tc 99m Choletec and sequential imaging was performed over the right upper abdomen. There is progressive, homogeneous accumulation of radiotracer within the liver parenchyma. There is filling of the bile ducts and subsequent filling of the gallbladder. There is progressive clearance of activity from the liver parenchyma and accumulation of radiotracer within loops of small bowel. The patient was then administered a fatty meal, utilizing 8 ounces of Ensure. The gallbladder ejection fraction was calculated to be approximately 15.7%. (Normal values post fatty meal stimulation are 33% or greater.) IMPRESSION: 1. Hepatobiliary scan demonstrates a patent biliary tree. 2. Abnormal gallbladder ejection fraction of approximately 15.7%. Dictated by: Dictated on workstation # [id number]
== END ==
LOC: CARD 10:00
PROVIDERS: ATTEND Nurse Practitioner
DX: R11.2 Nausea with vomiting, unspecified (principal)
CPT/HCPCS: 78227; A9537